=== PATIENT | female | born 1960 | race Caucasian/White ===

== ENCOUNTER 2017-10-02 12:40 | Outpatient (CLI) | payer BC ==
[~2017-10-02 12:40] MED LIST: ISOVUE-370 76%-LOCM 1 ML ONE
== END 2017-10-02 12:41 | disposition home or self-care (01) ==
LOC: BICCT 12:40
PROVIDERS: ATTEND Internal Medicine
DX: R10.84 Generalized abdominal pain (principal); K57.30 Diverticulosis of large intestine without perforation or abscess without bleeding
CPT/HCPCS: 74177